=== PATIENT | male | born 1940 | race Caucasian/White ===

== ENCOUNTER 2018-07-26 16:08 | Emergency (ER) | payer MEDICARE ==
[~2018-07-26] VITALS: Ht 180.3 cm; Wt 104.1 kg
[2018-07-26 16:11] VITALS: BP 174/94
[2018-07-26] MEDS ORDERED: PROPARACAINE OPHTH 0.5%, 15ML EACHEYE STA (16:53)
[2018-07-26] MEDS ORDERED: KETOROLAC OPHTH 0.5%, 5ML EACHEYE SCH (17:00)
--- NOTE | 2018-07-26 17:00 | NUR ---
PT CARE TRANSFERRED TO MIRNA CAMACHO RN.
[2018-07-26] MEDS ORDERED: PROPARACAINE OPHTH 0.5%, 15ML ONE (17:01)
--- NOTE | 2018-07-26 17:05 | NUR ---
Proparicaine drops placed in each eye.
--- NOTE | 2018-07-26 17:20 | NUR ---
Sammi HOFFMAN, at bedside with tonopen and additional medication.
--- NOTE | 2018-07-26 17:40 | NUR ---
Patient/Caregiver given discharge instructions and they have confirmed that they understand the instructions. Patient ambulatory with steady gait.
== END 2018-07-26 17:41 | disposition home or self-care (01) ==
LOC: ED 17:30
DX: H10.33 Unspecified acute conjunctivitis, bilateral (principal)
CPT/HCPCS: 99283

== ENCOUNTER 2018-07-28 21:40 | Emergency (ER) | payer MEDICARE ==
[~2018-07-28] VITALS: Ht 180.3 cm; Wt 104.4 kg
--- NOTE | 2018-07-28 21:56 | NUR ---
Pt presents to ED stating that he has had several episodes of near-syncopal episodes with associated CP (describes as "a weight and pressure") and SOB. Pt states that the pain is sternal, non-radiating and not-reproducible. Pt states that he has been under a lot of stress lately as his was admitted to this hospital on and he is very worried about her.
[2018-07-28] MEDS ORDERED: TAMS0.4C2 PO (22:01)
[2018-07-28] MEDS ORDERED: SIMV10TA3 PO (22:01)
[2018-07-28] MEDS ORDERED: LISI40TA PO (22:01)
--- NOTE | 2018-07-28 22:03 | NUR ---
Dr. Dubose at bedside to evaluate pt.
--- NOTE | 2018-07-28 22:10 | NUR ---
Pt ambulated to bathroom, no assistance required.
[2018-07-28 22:40] LABS: BASOPHILS # (AUTO) 0.05 x10^3/uL (0-0.1); BASOPHILS % (AUTO) 1 % (0-1); EOSINOPHILS % (AUTO) 1 % (1-7); LYMPHOCYTES # (AUTO) 2.73 x10^3/uL (1-3.4); LYMPHOCYTES % (AUTO) 33 % (22-44); MD NO; MEAN CORPUSCULAR HEMOGLOBIN 31.3 pg (27.5-34.5); MEAN CORPUSCULAR HGB CONC 33.9 g/dL (33.2-36.2); MEAN CORPUSCULAR VOLUME 92.5 fL (81-97); MEAN PLATELET VOLUME 8.9 fL (7.4-10.4); MONOCYTES # (AUTO) 0.74 x10^3/uL (0.2-0.8); MONOCYTES % (AUTO) 9 % (2-9); NEUTROPHILS # (AUTO) 4.55 x10^3/uL (1.8-6.8); NEUTROPHILS % (AUTO) 56 % (42-75); PLATELET COUNT 186 x10^3/uL (130-400); RED BLOOD COUNT 4.66 x10^6/uL (4.38-5.82); RED CELL DISTRIBUTION WIDTH 13.4 % (9.4-14.8)
[2018-07-28 22:52] LABS: ALBUMIN 3.2 g/dL (3.4-5.0); ANION GAP 7 mmol/L (5-15); CALCIUM 8.1 mg/dL (8.5-10.1); CHLORIDE 109 mmol/L (98-107)
[2018-07-28 22:57] LABS: ALANINE AMINOTRANSFERASE 23 U/L (12-78); ALKALINE PHOSPHATASE 94 U/L (45-117); BILIRUBIN,TOTAL 0.5 mg/dL (0.2-1.0); CREATININE 0.88 mg/dL (0.7-1.3); TOTAL PROTEIN 6.6 g/dL (6.4-8.2); TROPONIN I < 0.015 ng/mL (0.000-0.045)
--- NOTE | 2018-07-28 23:05 | NUR ---
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 BP rechecked and stable. Pt back to bed without incident.
--- NOTE | 2018-07-28 23:56 | NUR ---
Pt ambulated to bathroom, no assistance required.
[2018-07-28] MEDS ORDERED: MECLIZINE CHEWABLE 25 MG TAB ONE (23:58)
[2018-07-29] MEDS ORDERED: MECLIZINE CHEWABLE 25 MG TAB PO ONE
--- NOTE | 2018-07-29 00:01 | NUR ---
Pt medicated per MAR.
--- NOTE | 2018-07-29 00:15 | NUR ---
Pt ambulated 15 minutes after meclizine admin. Pt denies dizziness, Dr. Dubose made aware.
[2018-07-29 00:47] VITALS: BP 148/73
--- NOTE | 2018-07-29 00:47 | NUR ---
Patient/Caregiver given discharge instructions and they have confirmed that they understand the instructions. Patient ambulatory with steady gait.
== END 2018-07-29 00:49 | disposition home or self-care (01) ==
LOC: ED 22:21
DX: R07.89 Other chest pain (principal); R42 Dizziness and giddiness; R55 Syncope and collapse; I10 Essential (primary) hypertension; E78.00 Pure hypercholesterolemia, unspecified
CPT/HCPCS: 36415; 71045; 80053; 84484; 85025; 93005; 99284

== ENCOUNTER → 2018-11-06 | Outpatient (CLI) | payer MEDICARE ==
[~2018-11-06] MED LIST: LISI40TA PO; SIMV10TA3 PO; TAMS0.4C2 PO
== END | disposition home or self-care (01) ==
LOC: ROC 08:04
PROVIDERS: ATTEND Radiology Radiation Oncology
DX: C61 Malignant neoplasm of prostate (principal); E78.00 Pure hypercholesterolemia, unspecified; I10 Essential (primary) hypertension; Z85.828 Personal history of other malignant neoplasm of skin; Z79.02 Long term (current) use of antithrombotics/antiplatelets; Z79.899 Other long term (current) drug therapy; Z80.42 Family history of malignant neoplasm of prostate; Z72.89 Other problems related to lifestyle
CPT/HCPCS: G0463

== ENCOUNTER 2019-06-24 04:00 | Emergency (ER) | payer MEDICARE ==
[~2019-06-24] VITALS: Ht 180.3 cm; Wt 100.2 kg
[2019-06-24 04:04] VITALS: BP 151/79
[2019-06-24] MEDS ORDERED: LIDOCAINE 2%,20 ML JEL.PF.APP MM ONE (04:30)
--- NOTE | 2019-06-24 04:46 | NUR ---
LATE ENTRY: PT PRESENTS TO THE ER C/O URINARY RETENTION, STATES HE HAS NOT URINATED FULLY SINCE YESTERDAY MORNING. 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 SOON AFTERWARDS HE WAS UNABLE TO VOID. REPORTS URINARY URGENCY AND SEVERE PAIN HOWEVER ONLY VOIDING DROPS. BLADDER SCAN DONE, >1 LITER PER SCANNER. ORELLANA CATHETER INSERTED WITHOUT INCIDENT. FLOWING WELL, CLEAR YELLOW URINE. PT REPORTS RELIEF. OF 445 1100ML OUTPUT.
--- NOTE | 2019-06-24 05:39 | NUR ---
TOTAL OF 1400ML OF CLEAR URINE DRAINED FROM BLADDER. PT REPORTS SIGNIFICANT RELIEF. PROVIDED WITH A LEG DRAINAGE BAG UPON DISCHARGE WELL A LARGE BAG. PATIENT AND SIGNIFICANT OTHER EDUCATED ON HOW TO CHANGE THE BAGS AND EMPTY THEM. BOTH DEMONSTRATE UNDERSTANDING AND ARE ABLE TO PERFORM THE TASK IN FRONT OF THIS RN. ALL QUESTIONS ANSWERED. DISCHARGE PAPERWORK PROVIDED AND FOLLOW UP WITH UROLOGY. PT AND SIGNIFICANT OTHER DENY AND OTHER QUESTIONS OR CONCERNS.
--- NOTE | 2019-06-24 05:41 | NUR ---
Patient/Caregiver given discharge instructions and they have confirmed that they understand the instructions. Patient ambulatory with steady gait.
== END 2019-06-24 05:44 | disposition home or self-care (01) ==
LOC: ED 04:53
DX: N40.1 Benign prostatic hyperplasia with lower urinary tract symptoms (principal); R33.8 Other retention of urine; I10 Essential (primary) hypertension; E78.00 Pure hypercholesterolemia, unspecified; Z72.89 Other problems related to lifestyle
CPT/HCPCS: 51702; 99284

== ENCOUNTER 2019-06-27 11:18 | Emergency (ER) | payer MEDICARE ==
[~2019-06-27] VITALS: Ht 180.3 cm; Wt 97.2 kg
--- NOTE | 2019-06-27 11:51 | NUR ---
PT HERE WITH C/O LEAKING CATHETER. PT STATES IT WAS PLACED HERE FOR ACUTE URINARY RETENTION ON 06/24/19 AND STARTED LEAKING "FROM THE TIP OF MY PENIS THIS MORNING." PT DRESSED IN GOWN AND ATTACHED TO MONITOR. MD AT BEDSIDE FOR ASSESSMENT OF CATHETER. MD ATTACHED SYRINGE TO CATHETER BALLOON PORT, 8CC SALINE REMOVED FROM BALLOON AND RE-INSTILLED. MD ADDED 2CC SALINE TO MAKE A TOTAL OF 10CC IN BALLOON PER CATHETER REQUIREMENT. PT TOLERATED WELL AND DENIED ANY DISCOMFORT DURING PROCEDURE. PT AAO X 4, NAD, ROOM AIR, CALL LIGHT WITHIN REACH, AT BEDSIDE AND SIDERAIL X [address]
[2019-06-27 11:56] VITALS: BP 134/82
--- NOTE | 2019-06-27 12:17 | NUR ---
CATHETER IRRIGATED WITH 60CC STERILE WATER, 150CC URINE RETRUNED INTO NEW LEG BAG. EXTENSIVE LEG BAG TEACHING COMPLETED WITH BOTH PT AND .
--- NOTE | 2019-06-27 12:26 | NUR ---
ALL RESULTS BACK AT THIS TIME, CHART UP FOR RECHECK.
--- NOTE | 2019-06-27 12:37 | NUR ---
AT BEDSIDE FOR REASSESSMENT. PLAN FOR D/C.
--- NOTE | 2019-06-27 13:00 | NUR ---
Patient/Caregiver given discharge instructions and they have confirmed that they understand the instructions. Patient ambulatory with steady gait.
== END 2019-06-27 13:01 | disposition home or self-care (01) ==
LOC: ED 11:42
DX: T83.091A Other mechanical complication of indwelling urethral catheter, initial encounter (principal); E78.00 Pure hypercholesterolemia, unspecified; I10 Essential (primary) hypertension; Z85.46 Personal history of malignant neoplasm of prostate
CPT/HCPCS: 99284

== ENCOUNTER 2019-06-27 14:28 | Emergency (ER) | payer MEDICARE ==
[~2019-06-27] VITALS: Ht 182.9 cm; Wt 97.9 kg
[2019-06-27 14:30] VITALS: BP 99/60
--- NOTE | 2019-06-27 14:46 | NUR ---
MANAGER SALES TRAINING: PT TO ROOM FROM [facility]
[2019-06-27] MEDS ORDERED: LIDOCAINE 2%,20 ML JEL.PF.APP MM ONE ×2 (16:00→16:27)
--- NOTE | 2019-06-27 16:10 | NUR ---
CURRENT ORELLANA 16FR. CLEAR YELLOW URINE IN COLLECTION TUBING. PT REPORTS LEAKAGE THAT SOAKED HIS PANTS; NO DRAINAGE NOTED CURRENTLY.
--- NOTE | 2019-06-27 17:04 | NUR ---
REPLACEMENT ORELLANA PLACED: 18FR COUDAE TIP. CLEAR RED-TINGED URINE RETURNED. ORELLANA SYSTEM DEMONSTRATED & DISCUSSED W/ PT & SIG OTHER; QUESTIONS ANSWERED, UNDERSTANDING VERBALIZED.
== END 2019-06-27 17:19 | disposition home or self-care (01) ==
LOC: ED 15:31
DX: R33.9 Retention of urine, unspecified (principal); I10 Essential (primary) hypertension; E78.00 Pure hypercholesterolemia, unspecified; Z85.46 Personal history of malignant neoplasm of prostate
CPT/HCPCS: 51702; 99284

== ENCOUNTER → 2020-02-22 | Outpatient (CLI) | payer MEDICARE ==
[~2020-02-22] MED LIST changes: +SIMV10TA18 PO; -SIMV10TA3 PO
== END | disposition home or self-care (01) ==
LOC: ROC 09:24
PROVIDERS: ATTEND Radiology Radiation Oncology
DX: C61 Malignant neoplasm of prostate (principal)
CPT/HCPCS: G0463

== ENCOUNTER 2020-03-15 07:19 | Outpatient (CLI) | payer MEDICARE ==
[2020-03-15] MEDS ORDERED: MIDAZOLAM 1 MG/ML, 5ML IVPush ONE (09:30)
[2020-03-15] MEDS ORDERED: FENTANYL PF 100 MCG/2ML IVPush ONE (09:30)
[2020-03-15] MEDS ORDERED: LIDOCAINE/PF 1%, 30ML IV ONE (09:30)
== END 2020-03-15 23:59 | disposition home or self-care (01) ==
LOC: ROC 07:19
PROVIDERS: ATTEND Radiology Radiation Oncology
DX: C61 Malignant neoplasm of prostate (principal); Z79.899 Other long term (current) drug therapy; Z72.89 Other problems related to lifestyle
CPT/HCPCS: 55876; 76942; 77332; 99156; A4648; J2250; J3010

== ENCOUNTER 2020-03-21 10:10 | Outpatient (CLI) | payer MEDICARE | END 2020-03-21 23:59 | disposition home or self-care (01) | LOC: CFH 10:10 | PROVIDERS: ATTEND Radiology Radiation Oncology | DX: C61 Malignant neoplasm of prostate (principal) | CPT/HCPCS: 72195 ==

== ENCOUNTER 2020-08-24 07:12 | Outpatient (CLI) | payer MEDICARE ==
[~2020-08-24 07:12] MED LIST changes: -LISI40TA PO; +LISI40TA9 PO
== END 2020-08-24 23:59 | disposition home or self-care (01) ==
LOC: ROC 07:12
PROVIDERS: ATTEND Radiology Radiation Oncology
DX: Z08 Encounter for follow-up examination after completed treatment for malignant neoplasm (principal); Z85.46 Personal history of malignant neoplasm of prostate
CPT/HCPCS: G2012; G2251

== ENCOUNTER 2021-03-06 10:17 | Outpatient (CLI) | payer MEDICARE | END 2021-03-06 23:59 | disposition home or self-care (01) | LOC: ROC 10:17 | PROVIDERS: ATTEND Radiology Radiation Oncology | DX: Z08 Encounter for follow-up examination after completed treatment for malignant neoplasm (principal); Z85.46 Personal history of malignant neoplasm of prostate | CPT/HCPCS: G0463 ==